=== PATIENT | male | born 2000 | race Caucasian/White ===

== ENCOUNTER → 2023-05-15 13:39 | Outpatient (BNVA) | payer OTHER, SELFPAY | PROVIDERS: Visit Provider Family Medicine | DX: R03.0 Elevated blood-pressure reading, without diagnosis of hypertension (principal); J30.2 Other seasonal allergic rhinitis | CPT/HCPCS: 80053; 84439; 84443; 85025 ==

== ENCOUNTER 2024-02-01 16:38 | Outpatient (CLI) | payer OTHER, SELFPAY ==
[2024-02-02 08:59] LABS: HIV 1 & 2 Antibody Non-Reactive (Non-Reactiv); HIV 1 & 2 Antigen Non-Reactive (Non-Reactiv)
[2024-02-02 14:19] LABS: Hepatitis B Surface AB 711.7 (11.5-1000); Hepatitis B Surface Antigen Non-Reactive (Nonreactive); Hepatitis C Virus Antibody Non-Reactive (Nonreactive)
== END 2024-02-01 16:39 | disposition home or self-care (01) ==
PROVIDERS: Visit Provider Family Medicine
DX: Z01.89 Encounter for other specified special examinations (principal)
CPT/HCPCS: 86706; 86803; 87340; 87806